=== PATIENT | female | born 1960 | race Caucasian/White ===

== ENCOUNTER 2024-08-06 05:24 | Observation (INO) ==
--- NOTE | 2024-07-06 11:40 | PAT Medication Instructions ---
Medication Instructions Date of Service July 06, 2024 Home Medications Medication Instructions Recorded acetaminophen 500 mg tablet 1,000 mg (2 x 500 mg) PO TID pain 12/12/23 (Tylenol Extra Strength) 30 days #180 tabs oxycodone 5 mg tablet 5 - 10 mg (1 - 2 x 5 mg) PO Q6 PRN 12/12/23 pain #40 tabs Medication List: buspirone 10 mg tablet 10 mg PO TID PRN Anxiety duloxetine 30 mg capsule,delayed release 30 mg PO QAM duloxetine 60 mg capsule,delayed release 60 mg PO QAM hydrochlorothiazide 25 mg tablet 25 mg PO QAM hydrocodone 5 mg-acetaminophen 300 mg tablet 1 tab PO Q6H PRN Pain levothyroxine 137 mcg capsule 137 mcg PO QAM lisinopril 20 mg tablet 20 mg PO QAM omeprazole 40 mg capsule,delayed release 40 mg PO BID ropinirole 1 mg tablet 1 mg PO HS Medical Thc 1 dose PO DAILY PRN pain/anxiety cholecalciferol (vitamin D3) 125 mcg (5,000 unit) tablet (Vitamin D3) 250 mcg PO QAM cyanocobalamin (vitamin B-12) 1,000 mcg/mL injection solution 1,000 mcg IM MONTHLY magnesium oxide 500 mg PO QAM hlflzxriifxp-wyifahaj-bighut tablet (Multivitamin 50 Plus tablet) 1 tab PO QAM acetaminophen 500 mg tablet (Tylenol Extra Strength) 1,000 mg (2 x 500 mg) PO TID pain oxycodone 5 mg tablet 5 - 10 mg (1 - 2 x 5 mg) PO Q6 PRN pain famotidine 10 mg tablet 10 mg PO QAM MEDICATION INSTRUCTIONS: Continue as directed cyanocobalamin (vitamin B-12) 1,000 mcg/mL injection solution 1,000 mcg IM MONTHLY DO NOT take the morning of surgery Medical Thc 1 dose PO DAILY PRN pain/anxiety cholecalciferol (vitamin D3) 125 mcg (5,000 unit) tablet (Vitamin D3) 250 mcg PO QAM magnesium oxide 500 mg PO QAM drqyhtqoyzvs-lcskkykd-kwreuy tablet (Multivitamin 50 Plus tablet) 1 tab PO QAM hydrochlorothiazide 25 mg tablet 25 mg PO QAM lisinopril 20 mg tablet 20 mg PO QAM Take morning of surgery With a small sip of water, OTHERWISE NOTHING TO EAT OR DRINK AFTER MIDNIGHT: acetaminophen 500 mg tablet (Tylenol Extra Strength) 1,000 mg (2 x 500 mg) PO TID pain omeprazole 40 mg capsule,delayed release 40 mg PO BID buspirone 10 mg tablet 10 mg PO TID PRN Anxiety oxycodone 5 mg tablet 5 - 10 mg (1 - 2 x 5 mg) PO Q6 PRN pain hydrocodone 5 mg-acetaminophen 300 mg tablet 1 tab PO Q6H PRN Pain famotidine 10 mg tablet 10 mg PO QAM levothyroxine 137 mcg capsule 137 mcg PO QAM duloxetine 30 mg capsule,delayed release 30 mg PO QAM duloxetine 60 mg capsule,delayed release 60 mg PO QAM Take evening before surgery acetaminophen 500 mg tablet (Tylenol Extra Strength) 1,000 mg (2 x 500 mg) PO TID pain omeprazole 40 mg capsule,delayed release 40 mg PO BID buspirone 10 mg tablet 10 mg PO TID PRN Anxiety oxycodone 5 mg tablet 5 - 10 mg (1 - 2 x 5 mg) PO Q6 PRN pain hydrocodone 5 mg-acetaminophen 300 mg tablet 1 tab PO Q6H PRN Pain Medical Thc 1 dose PO DAILY PRN pain/anxiety (if needed) ropinirole 1 mg tablet 1 mg PO HS Other Notes If you have any questions please call us at [phone] or [phone] or [phone] or [phone]
--- NOTE | 2024-07-13 11:28 | Anesthesiology Consultation ---
Date of Service July 13, 2024 Assessment & Plan (1) Encounter for pre-operative examination: - Outpatient joint assessment: Patient is currently scheduled for inpatient pathway. If re-evaluated and patient/surgeon requests outpatient pathway, patient is acceptable candidate for outpatient joint program from anesthesia standpoint pending surgeon's office assessment of pt motivation/support/completion of same day joint program preop requirements. Chart Review Chart Review: Acceptable Risk for Surgery and Patient seen in Pre Admission Testing Teaching & Discussion Pre-Anesthesia Teaching/Discussion Notes: Instructed NPO after midnight before surgery, except medications with 15 cc of water. Medication instructions provided according to the PAT guidelines. History Surgery Operation Date: 08/06/24 10:40 Proposed Procedures p Right Total Hip Arthroplasty - Jaylen Buitrago MD Height/Weight Height: 5 ft 5 in Weight: 123.9 kg Allergies Allergy/AdvReac Type Severity Reaction Status Date / Time latex Allergy hives and Verified 06/24/24 08:41 blisters Medications Home Medications Medication Instructions Recorded Confirmed Last Taken buspirone 10 mg tablet 10 mg PO TID PRN Anxiety 11/13/23 07/01/24 Unknown duloxetine 30 mg capsule,delayed 30 mg PO QAM 11/13/23 07/01/24 Unknown release duloxetine 60 mg capsule,delayed 60 mg PO QAM 11/13/23 07/01/24 Unknown release hydrochlorothiazide 25 mg tablet 25 mg PO QAM 11/13/23 07/01/24 Unknown hydrocodone 5 mg-acetaminophen 300 1 tab PO Q6H PRN Pain 11/13/23 07/01/24 Unknown mg tablet levothyroxine 137 mcg capsule 137 mcg PO QAM 11/13/23 07/01/24 Unknown lisinopril 20 mg tablet 20 mg PO QAM 11/13/23 07/01/24 Unknown omeprazole 40 mg capsule,delayed 40 mg PO BID 11/13/23 07/01/24 Unknown release ropinirole 1 mg tablet 1 mg PO HS 11/13/23 07/01/24 Unknown Medical Thc 1 dose PO DAILY PRN pain/anxiety 11/18/23 07/01/24 Unknown cholecalciferol (vitamin D3) 125 250 mcg PO QAM 11/18/23 07/01/24 Unknown mcg (5,000 unit) tablet (Vitamin D3) cyanocobalamin (vitamin B-12) 1,000 mcg IM MONTHLY 11/18/23 07/01/24 Unknown 1,000 mcg/mL injection solution magnesium oxide 500 mg PO QAM 11/18/23 07/01/24 Unknown lloicvwliihb-fzgpjjra-azoeif 1 tab PO QAM 11/18/23 07/01/24 Unknown tablet (Multivitamin 50 Plus tablet) acetaminophen 500 mg tablet 1,000 mg (2 x 500 mg) PO TID pain 12/12/23 07/01/24 Unknown (Tylenol Extra Strength) 30 days #180 tabs oxycodone 5 mg tablet 5 - 10 mg (1 - 2 x 5 mg) PO Q6 PRN 12/12/23 07/01/24 Unknown pain #40 tabs famotidine 10 mg tablet 10 mg PO QAM 06/24/24 07/01/24 Unknown Past Medical History Medical History (Updated 07/13/24 @ 11:35 by Zeynep Rajan PA-C) Anxiety Chronic back pain follows with [facility] pain management Degenerative disc disease Depression GERD (gastroesophageal reflux disease) controlled, stable per pt Hiatal hernia History of anesthesia reaction hx of having a nerve block that did not work in the past for wrist surgery History of gastric ulcer 01/2024 (resolved) History of migraine Hx of Clostridium difficile infection (~1989) early s - treated with abx, no problems since. Hypertension controlled, stable per pt Hypothyroidism Lumbar disc herniation Medical cannabis use Morbid obesity Osteoarthritis Postoperative ileus (2015) s/p gastric sleeve procedure and "reattachment of the intestines from the original weightloss surgery at age 15 Pulmonary nodules monitors with chest ct annually (last done at [facility] 02/2023) Restless leg syndrome Patient denies h/o stroke, seizures, heart attack, heart failure, DM, blood clots/DVTs or blood transfusions. Exercise / Class Metabolic Activity III < 4 Walking/Shop/Light housework (ambulates with rolling walker, denies chest discomfort or shortness of breath with usual activities) Past Family History Family History Other No family history of adverse response to anesthesia Past Surgical History Surgical History H/O abdominal surgery at age 15, weightloss surgery (removal of small intestine? maybe Kelly-en-y procedure, pt unsure) H/O right wrist surgery wrist fusion with hardware History of appendectomy with hysterectomy History of bilateral tubal ligation History of cataract surgery bilateral History of cholecystectomy History of colonoscopy History of dilatation and curettage History of esophagogastroduodenoscopy (EGD) last done 03/2024 S/P epidural steroid injection S/P gastric sleeve procedure (2015) [facility] S/P left knee arthroscopy S/P ORIF (open reduction internal fixation) fracture right wrist with hardware S/P pilonidal cyst excision S/P YANIRA-BSO S/P tonsillectomy Past Anesthesia History Other (mother required more medication than usual) History of PONV History of PONV (more than 20 yrs ago) and Hx of Motion Sickness Social History Smoking Status: Former smoker Do You Dip or Chew Tobacco: No Smoking End Date: quit 2014 Hx Alcohol Use: No Hx Substance Use: Yes (medical THC gummies and vape PRN) substance use type: marijuana Substance Use Type Other:: medical THC gummies and vape PRN-advised Last Used Substance Other:: 06/30/24 Review of Systems Patient denies chest pain, shortness of breath, dyspnea on exertion, snoring, witnessed apneas, fever, chills, cough, wheezing, or palpitations. Physical Exam Vital Signs Vitals BP 129/76 P 77 TEMP 98.1 SP02 95% on RA RESP 19 Physical Patient resting comfortably in chair in no acute distress, alert and oriented, responding appropriately throughout visit Full cervical extension range of motion without pain TMD 3.5 finger breadths Mallampati Score 3 Dentition: upper partial; denies chipped or loose teeth, caps/crowns, implants or bridges Lungs: normal respiratory effort. Good air movement, clear throughout to auscultation, no adventitious breath sounds Cardiac: regular rate and rhythm, no murmurs noted Carotid arteries: negative bruit bilat Lab Results Anesthesia Preop Results Results Anesthesia Widget: WBC 5.59 K/ul (4.8-10.8) 07/13/24 Hgb 12.9 g/dl (12.0-16.0) 07/13/24 Hct 39.4 % (37.0-47.0) 07/13/24 Plt 274 K/uL (130-400) 07/13/24 Na 141 mmol/L (136-145) 07/13/24 K 4.6 mmol/L (3.5-5.1) 07/13/24 Cl 105 mmol/L (98-107) 07/13/24 CO2 30 mmol/L (21-32) 07/13/24 BUN 29 mg/dl (6-23) H 07/13/24 Creat 0.80 mg/dl (0.6-1.2) 07/13/24 Glucose Level 100 mg/dl (70-99(Fasting)) H 07/13/24 PT 9.9 Seconds (9.0-12.0) 07/13/24 PTT 27 Seconds (21-31) 07/13/24 INR 0.9 (0.9-1.1) 07/13/24 Blood Type O Positive 07/13/24 Antibody Screen NEGATIVE 07/13/24 Testing Electrocardiogram Date: 12/02/23 NSR, rate 82 bpm Chest X-Ray Date: 12/02/23 No acute process.
--- NOTE | 2024-07-31 11:26 | History & Physical Report ---
Date of Service July 31, 2024 Assessment & Plan (1) Degenerative joint disease of right hip: 63-year-old female with history of gastric bypass surgery x 2 with advanced right hip arthritis. She has failed conservative measures. She was actually scheduled for surgery in the past but had to cancel due to some GI issues which have now been cleared out. She denied to proceed with right hip replacement. Plan: Amritaran to take her to the operating room and do a right total hip placement of the right cementless procedure explained. Informed consent was obtained. Will have a cemented stem available in case of bone density does not support an uncemented stem. She will likely need a Prevena VAC dressing po stoperatively. Will do well over weekend without any GI issues with her famotidine and omeprazole. Will hold any unnecessary NSAIDs. She is planned to be discharged to home using [facility] health program. (2) Obesity: (3) Hypertension: (4) Thyroid disease: History of Present Illness Chief Complaint: . Persistent and progressive right hip pain and discomfort. Primary Care Provider: Wendy Eduardo PA-C . The patient is a 63-year-old female from [facility] who presents for treatment of her hip. I had seen her back in November and scheduled for total hip replacement. She developed significant GI problems had an ulcer and has surgery was canceled. She has had an extensive workup and treatment and this is now under control. As she has now been cleared to proceed with her surgery. She does have history of gastric bypass surgery x 2. She has had to resort to using a cane to get around to the pain. She gotten worse over the past year in particular over the past 6 months. She has attempted weight loss with some success but feels she is limited due to her limited mobility. Allergies Allergy/AdvReac Type Severity Reaction Status Date / Time latex Allergy hives and Verified 06/24/24 08:41 blisters Home Medications Medication Instructions Recorded Confirmed Type buspirone 10 mg tablet 10 mg PO TID PRN Anxiety 11/13/23 07/01/24 History duloxetine 30 mg capsule,delayed 30 mg PO QAM 11/13/23 07/01/24 History release duloxetine 60 mg capsule,delayed 60 mg PO QAM 11/13/23 07/01/24 History release hydrochlorothiazide 25 mg tablet 25 mg PO QAM 11/13/23 07/01/24 History hydrocodone 5 mg-acetaminophen 300 1 tab PO Q6H PRN Pain 11/13/23 07/01/24 History mg tablet levothyroxine 137 mcg capsule 137 mcg PO QAM 11/13/23 07/01/24 History lisinopril 20 mg tablet 20 mg PO QAM 11/13/23 07/01/24 History omeprazole 40 mg capsule,delayed 40 mg PO BID 11/13/23 07/01/24 History release ropinirole 1 mg tablet 1 mg PO HS 11/13/23 07/01/24 History Medical Thc 1 dose PO DAILY PRN pain/anxiety 11/18/23 07/01/24 History cholecalciferol (vitamin D3) 125 250 mcg PO QAM 11/18/23 07/01/24 History mcg (5,000 unit) tablet (Vitamin D3) cyanocobalamin (vitamin B-12) 1,000 mcg IM MONTHLY 11/18/23 07/01/24 History 1,000 mcg/mL injection solution magnesium oxide 500 mg PO QAM 11/18/23 07/01/24 History yvpqicuzvczi-onbjitcc-gkotvk 1 tab PO QAM 11/18/23 07/01/24 History tablet (Multivitamin 50 Plus tablet) acetaminophen 500 mg tablet 1,000 mg (2 x 500 mg) PO TID pain 12/12/23 07/01/24 Rx (Tylenol Extra Strength) 30 days #180 tabs oxycodone 5 mg tablet 5 - 10 mg (1 - 2 x 5 mg) PO Q6 PRN 12/12/23 07/01/24 Rx pain #40 tabs famotidine 10 mg tablet 10 mg PO QAM 06/24/24 07/01/24 History Past Med/Surg History Problem List (Updated 07/31/24 @ 11:25 by Jaylen Buitrago MD) Degenerative joint disease of right hip Obesity Hypertension Thyroid disease Medical History History of gastric ulcer 01/2024 (resolved) Pulmonary nodules monitors with chest ct annually (last done at [facility] 02/2023) Medical cannabis use Hx of Clostridium difficile infection (~1989) early s - treated with abx, no problems since. Morbid obesity History of anesthesia reaction hx of having a nerve block that did not work in the past for wrist surgery Postoperative ileus (2016) s/p gastric sleeve procedure and "reattachment of the intestines from the original weightloss surgery at age 15 Restless leg syndrome Lumbar disc herniation Degenerative disc disease Chronic back pain follows with [facility] Osteoarthritis Hiatal hernia GERD (gastroesophageal reflux disease) controlled, stable per pt Hypothyroidism Depression Anxiety History of migraine Hypertension controlled, stable per pt Surgical History History of dilatation and curettage History of bilateral tubal ligation S/P gastric sleeve procedure (2016) [facility] [place] S/P epidural steroid injection History of cataract surgery bilateral History of appendectomy with hysterectomy History of esophagogastroduodenoscopy (EGD) last done 03/2024 History of colonoscopy S/P left knee arthroscopy S/P pilonidal cyst excision H/O right wrist surgery wrist fusion with hardware S/P ORIF (open reduction internal fixation) fracture right wrist with hardware S/P YANIRA-BSO History of cholecystectomy H/O abdominal surgery at age 15, weightloss surgery (removal of small intestine? maybe Kelly-en-y procedure, pt unsure) S/P tonsillectomy Family History Other No family history of adverse response to anesthesia Social History Smoking Status: Former smoker Tobacco Type: Cigarettes Second Hand Exposure: No; Do You Dip or Chew Tobacco: No; Hx Alcohol Use: No Hx Substance Use: Yes (medical THC gummies and vape PRN) Last Used Substance Other:: 06/30/24 Substance Use Type Other:: medical THC gummies and vape PRN- advised Preferred Language: Khmer Communication Ability: Effective Crusher Foreman Required: No Beliefs That Will Affect Care: None Current Living Situation: Spouse Feels Safe at Home: Yes Assistive Devices: Denture - Upper and Walker Review of Systems All systems reviewed & are unremarkable except as noted in HPI & below. Physical Exam . Physical examination reveals a pleasant middle-age female boot. Looks to be in reasonably decent health. Examination of right hip and leg reveal patient walks with antalgic gait. She comes in using a cane. Very stiff hip with very limited motion. Negative straight leg raise. She is slightly short on the side compared the OpSite about half a centimeter. Negative straight leg raise. Constitutional WD/WN, vitals as above Respiratory normal respiratory effort, lungs clear to auscultation Cardiovascular RRR, no murmur, no edema Gastrointestinal (Abdomen) normal bowel sounds, soft, nontender, no hepatosplenomegaly Results & Data Results & Data Laboratory Results . Diagnostic Findings . X-rays of the right hip were reviewed. Shows advanced right hip DJD. She got complete loss of superior joint space. As she is got some degree of subluxation of the femoral head at the acetabulum. This has progressed over the past 6 months. PG Care Time/CCT Total # of Minutes Spent Total Time Spent with Patient: Total time spent is greater than 50% in coordination of care (as documented) at patient's floor/unit and/or counseling patient: Coding Level of Care Code None Diagnoses Degenerative joint disease of right hip M16.11 Obesity E66.9 Hypertension I10 Thyroid disease E07.9
[2024-08-06] MEDS: LR 500ML BOLUS, THEN 15ML/HR IV SCH (05:52)
[2024-08-06] MEDS: LR 60ML/HR IV SCH (05:53)
[2024-08-06] MEDS: METOCLOPRAMIDE HCL 10 MG TABLET PO SCH (06:14)
[2024-08-06] MEDS: FAMOTIDINE 20 MG TAB PO SCH (06:14)
[2024-08-06] MEDS: ACETAMINOPHEN 500 MG TAB PO SCH ×2 (06:14→14:02)
[2024-08-06] MEDS: CeleBREX 200 MG CAP PO SCH (06:14)
[2024-08-06] MEDS ORDERED: LIDOCAINE 2% 2 ML VIAL/AMP(20MG/ML) INFIL ONE (06:26)
[2024-08-06] MEDS ORDERED: PROPOFOL IV EMULSION 10 MG/ML 20 ML VIAL IV ONE (06:26)
[2024-08-06] MEDS ORDERED: fentaNYL citrate PF 100 MCG/2 ML VIAL ONE (06:28)
[2024-08-06] MEDS ORDERED: MIDAZOLAM HCL 1 MG/ML 2ML VIAL ONE (06:28)
[2024-08-06] MEDS ORDERED: BUPIVACAINE 0.5 % 5 MG/1 ML PF 10ML VIAL ONE (06:32)
[2024-08-06] MEDS: dexAMETHasone**PF** 10 MG/ML VIAL ONE (06:47)
--- NOTE | 2024-08-06 06:48 | History & Physical Bridge Note ---
Date of Service August 06, 2024 History & Physical Bridge Note I have examined the patient, reviewed the History & Physical and in the interval since the performance of the History & Physical I have noted the following changes of clinical significance: no changes noted
[2024-08-06] MEDS: TRANEXAMIC ACID 1,000 MG **IV Pre-op IV SCH (06:54)
[2024-08-06] MEDS: ceFAZolin 3000MG 3,000 MG/72.5 ML BAG IV SCH (07:04)
[2024-08-06] MEDS ORDERED: PHENYLEPHRINE HCL 10 MG/ML VIAL ONE (07:13)
[2024-08-06] MEDS ORDERED: PHENYLEPHRINE 100MCG/ML 5ML SYR ONE (07:13)
[2024-08-06] MEDS ORDERED: ePHEDrine sulfate 50 MG/5 ML SYR ONE (07:18)
[2024-08-06] MEDS ORDERED: ePHEDrine sulfate 50 MG/ML AMP IV PRN (07:49)
[2024-08-06] MEDS ORDERED: PROMETHAZINE HCL 6.25 MG in SODIUM CHLORIDE 0.9% 50 ML IV PRN (07:49)
[2024-08-06] MEDS ORDERED: HYDROmorphone INJ 2 MG/ML SYR/VIAL IV PRN (07:49)
[2024-08-06] MEDS ORDERED: ATROPINE SULFATE 0.1 MG/ML 10ML SYR IV PRN (07:49)
[2024-08-06] MEDS: BUPIVACAINE/EPINEPHRINE 0.5% MPF 1:200,000 30 ML VIAL ONE (07:53)
--- NOTE | 2024-08-06 09:19 | Operative Report ---
PG Post Operative Report Pre & Post Diagnosis Operation Date: 08/06/24 07:00 Pre-Op Diagnosis: Right Hip Degenerative Joint Disease Post-Op Diagnosis: Right Hip Degenerative Joint Disease I identified the patient and participated in the time-out.: Yes Procedure Operation Date: 08/06/24 07:00 Actual Procedures p Right Total Hip Arthroplasty, Uncemented(Right) - Jaylen Buitrago MD Surgeon Jaylen Buitrago MD Marketing Operations Associate None Estimated Blood Loss 200 Findings Consistent with Post-Op Diagnosis Specimens Right femoral head sent for pathology. Anesthesia Type Spinal MAC Complications none Disposition Accompanied Patient To Recovery: No Indications The patient is a 63-year-old female whose had a several year history of increasing right hip pain discomfort has become more debilitating over time. X- rays show progressive hip arthritis. She failed conservative measures. She elected proceed with total hip arthroplasty. She had been previously scheduled but had to be canceled to home medical reasons. She has been medically optimi zed now indicated and elects to proceed with total hip arthroplasty. Description of Procedure Operative implants consist of: 1 Biomet G7 size 54 mm acetabular shell. 2. [place] hole retanner. 3. 6.5 mm cancellous acetabular screws 1 of 35 mm length and 1 of 25 mm length. 4. Highly cross-linked polyethylene liner with a 54 mm outer diameter and 36 mm inner diameter. 5. DePuy Karaya size 13 KLA femoral stem. 6. +5/36 mm ceramic articular ball. The patient was taken to the op room, identified, placed on the operating table in the supine position. All conductors were appropriately padded. IV antibiotics fibra anesthesia team. A spinal anesthetic had been implemented holding area. A Strickland catheter was placed in sterile fashion. The patient was then placed in the left lateral cubitus position. An axillary roll was placed. Distal Birkett position was used for positioning. The right hip and leg were then prepped and draped in usual sterile fashion. A posterolateral approach to the right hip was then performed to a curvilinear incision centered over the greater trochanter. Sharp dissection Through subcutaneous tissue dental of the IT band gluteal fascia. The IT band gluteal fascia incised longitudinally in line with skin incision. The greater bursa was excised. The piriformis and external rotators along with the posterior hip joint capsule were then released in the posterior aspect the hip as a single layer. The hip was internally rotated and dislocated. A femoral neck osteotomy cut was made with a Final Cut about 10 mm above the lesser trochanter. The femoral head was removed and sent for pathology. The femur was retracted anteriorly. Attention then drawn the acetabulum. The acetabulum labrum was excised. The pulmonary fat was excised. Sequential reaming the acetabular was then performed again with a size 45 and progressing up to 53. I reamed a little bit with a 54 reamer and then placed a 54 mm Biomet cup in about 40 degrees lateral opening and 20 degrees of anteversion. It was fixed with two 6.5 screws. A trial liner was placed. Attention drawn the femur. The proximal femur was entered with a cookie cutter followed by careful finder. I then broached beginning with a size 8 and progressing up to a 13. Get excellent fitted to 13. I tried the hip and the hip was fully stable with a +5 articular ball. Leg lengths seemed equal. Soft tension seemed appropriate. We elect to place these implants. All trial implants were removed. An apex hole retanner was placed. Highly cross-linked polyethylene liner was placed. A size 13 KLA femoral stem was impacted in position. A +5/36 mm ceramic articular ball was placed. Hip was located and once again found to be stable. Attention was then drawn toward closing. The wounds irrigated pulsatile lavage solution. I did inject locally with 60 cc of half percent Marcaine with epinephrine. The posterior capsule and external rotators were then repaired through drill holes with #2 Tycron suture. The IT band gluteal fascia was then closed with #1 PDS suture in a running fashion through the subcutaneous tissue then closed with 3 layers with the deep layer #2 Vicryl suture the mid level layer was 0 Vicryl suture in the subcutaneous tissues with 2-0 Dexon suture in buried interrupted fashion. Skin was then closed with skin farzana. A Prevena VAC dressing was applied to the very thick soft tissue envelope. The patient was then transferred to the recovery room in stable condition. Patient tolerated procedure well and there are no complications. I attest to the content of the Intraoperative Record and any orders documented therein. Any exceptions are noted below.
--- NOTE | 2024-08-06 09:55 | XRay Report ---
XR hip 1V RT w pelvis CLINICAL HISTORY: Postoperative evaluation. COMPARISON: Right hip radiographs June 24, 2024. FINDINGS: Alignment of the total right hip arthroplasty is in anatomic. There is no periprosthetic f racture or unexpected radiopaque foreign body. There are acetabular screws and skin farzana. IMPRESSION: Expected findings following total right hip arthroplasty. ACT 112: Negative or not required by law. Electronically signed by: Chidi Page M.D. 08/06/2024 9:53 AM
[2024-08-06] MEDS ORDERED: MAGNESIUM HYDROXIDE SUSP 30 ML UDC PO PRN (10:17)
[2024-08-06] MEDS ORDERED: METOCLOPRAMIDE HCL INJ 5 MG/ML 2 ML VIAL IV PRN (10:17)
[2024-08-06] MEDS ORDERED: NALOXONE HCL 0.4 MG/1 ML VIAL/CARP IV PRN (10:17)
[2024-08-06] MEDS ORDERED: oxyCODONE HCL IR 5 MG TAB (IMMEDIATE RELEASE) PO PRN ×2 (10:17)
[2024-08-06] MEDS ORDERED: HYDROmorphone INJ 0.5 MG/0.5 ML SYR IV PRN (10:17)
[2024-08-06] MEDS ORDERED: ALUMINUM/MAGNESIUM SUSP 30 ML UDC PO PRN (10:17)
[2024-08-06] MEDS ORDERED: ONDANSETRON INJ 2 MG/ML 2 ML VIAL IV PRN (10:17)
[2024-08-06] MEDS ORDERED: busPIRone 5 MG TAB PO PRN (10:17)
[2024-08-06] MEDS ORDERED: bisacodyL 10 MG SUPP PR PRN (10:17)
[2024-08-06] MEDS ORDERED: MEDICAL MARIJUANA PO PRN (10:40)
[2024-08-06] MEDS: KETOROLAC 30 MG/ML VIAL IV SCH (11:51)
[2024-08-06] MEDS ORDERED: ACETAMINOPHEN 500 MG TAB PO SCH ×2 (14:00)
--- NOTE | 2024-08-06 14:25 | Anesthesiology Progress Note ---
Date of Service August 06, 2024 Anesthesia Post Procedure Vital Signs Vital Signs: Temp Pulse Pulse Resp BP Pulse Ox O2 Del Method 08/06/24 10:16 36.4 C L 86 16 130/80 98 Room Air 08/06/24 09:45 85 12 121/78 96 Room Air 08/06/24 09:35 36.4 C L 86 14 108/80 96 Room Air 08/06/24 09:25 82 16 134/76 98 Room Air 08/06/24 09:15 83 14 130/73 99 Oxymask 08/06/24 09:09 36.3 C L 84 16 124/81 97 Oxymask 08/06/24 05:58 36.5 C 71 20 137/80 95 Room Air O2 Flow Rate 08/06/24 10:16 08/06/24 09:45 08/06/24 09:35 08/06/24 09:25 08/06/24 09:15 3 08/06/24 09:09 6 08/06/24 05:58 Pain Intensity Right Hip: Pain Intensity: 4 Transfer of Care Handoff Completed per policy Notes Mental Status: alert / awake / arousable and participated in evaluation Nausea / Vomiting: adequately controlled Pain: adequately controlled Airway Patency, RR, SpO2: stable & adequate BP & HR: stable & adequate Hydration State: stable & adequate Anesthetic Complications: no major complications apparent and Pt Satisfied with anesthetic care
[2024-08-06] MEDS: ceFAZolin 2000MG 2,000 MG/15 ML SYR IV SCH (14:52)
[2024-08-06] MEDS: TRANEXAMIC ACID / 0.7% NACL 1,000 MG/100 ML BAG IV SCH (14:52)
[2024-08-06] MEDS: ASCORBIC ACID 500 MG TAB PO SCH (17:12)
[2024-08-06] MEDS: SENNA 8.6 MG TAB PO SCH (20:11)
[2024-08-06] MEDS: DOCUSATE SODIUM 100 MG CAP PO SCH (20:12)
[2024-08-06] MEDS: rOPINIRole HCL 1 MG TABLET PO SCH (20:13)
[2024-08-06] MEDS: ASPIRIN 81 MG ECTAB PO SCH (20:13)
[2024-08-06] MEDS: PANTOprazole 40 MG TAB PO SCH (20:13)
[2024-08-06] MEDS ORDERED: SENNA 8.6 MG TAB PO SCH (21:00)
[2024-08-07] MEDS: LEVOTHYROXINE SODIUM 137 MCG TABLET PO SCH (05:49)
[2024-08-07 06:18] LABS: Basophils # (auto) 0.02 K/uL (0.00-0.20); Basophils % (auto) 0.2 %; Eosinophils # (auto) 0.01 K/uL (0.00-0.50); Eosinophils % (auto) 0.1 %; Hematocrit (blood only) 36.9 % (37.0-47.0); Hemoglobin 12.1 g/dl (12.0-16.0); Immature Granulocytes # (auto) 0.04 K/uL (0.01-0.20); Immature Granulocytes % (auto) 0.4 %; Lymphocytes % (auto) 12.6 %; Mean Corpuscular Hemoglobin 32.4 pg (25.0-34.0); Mean Corpuscular Hgb Conc 32.8 g/dL (32.0-36.0); Mean Corpuscular Volume 98.9 fL (80.0-100.0); Mean Platelet Volume 10.5 fL (9.4-12.4); Monocytes # (auto) 0.86 K/uL (0.11-0.59); Monocytes % (auto) 8.3 %; Neutrophils # (auto) 8.07 K/uL (1.40-6.50); Neutrophils % (auto) 78.4 %; Platelet Count 237 K/uL (130-400); RDW Coefficient of Variation 13.2 % (11.5-14.5); RDW Standard Deviation 47.4 fL (36.4-46.3); Red Blood Count 3.73 M/uL (4.20-5.40)
[2024-08-07 06:33] LABS: BUN Creatinine Ratio 34.8 (10-20); Calcium 8.9 mg/dl (8.6-10.3); Creatinine Clr Calc Pharmacy 81.3 ml/min; Potassium 4.1 mmol/L (3.5-5.1)
--- NOTE | 2024-08-07 08:16 | Orthopedic Progress Note ---
Date of Service August 07, 2024 Assessment & Plan (1) Status post right hip replacement: Plan: 63-year-old female postop day 1 from right hip replacement doing pretty well. Pain is controlled. Hip is located. She is neurologically intact. Plan: 1. DVT prophylaxis including thigh-high teds, SCDs, and a baby aspirin twice a day for 6 weeks. 2. PT/OT. Weight-bear as tolerated. Right total hip protocol. 3. Pain control. Doing okay with current pain regimen. 4. Disposition. She is planned to be discharged home with some home health. She got a Prevena VAC dressing in place. That will be removed in 7 days. (2) Obesity: (3) Hypertension: (4) Thyroid disease: Admission and Anticipated Discharge Date Admission Date: August 06, 2024 Subjective 63-year-old female postop day 1 from right hip replacement. She is doing pretty well. Pain has been controlled. Had a reasonable night. No chest pain or shortness of breath. Not feeling dizzy or lightheaded. Physical Exam Physical Exam: Physical steven is a pleasant middle-age female. She sat in her bedside chair this morning looks pretty comfortable. Examination of the right hip and leg reveals the Prevena VAC dressing in place. Thigh is soft and supple. Leg lengths are equal. She can dorsiflex and plantarflex her foot appropriately. Respiratory: normal respiratory effort, lungs clear to auscultation Cardiovascular: RRR, no murmur, no edema Gastrointestinal (Abdomen): normal bowel sounds, soft, nontender, no hepatosplenomegaly Results & Data Vital Signs (Past 12 Hours) Vital Signs Temp Pulse Resp BP Pulse Ox O2 Del Method 08/07/24 06:00 36.5 C 76 16 149/80 H 97 Room Air 08/07/24 01:00 36.4 C L 76 18 134/82 96 Room Air 08/06/24 21:00 36.7 C 104 H 18 130/73 94 Room Air Laboratory Results Hemoglobin is 12.1. Hematocrit 36.9. Electrolytes are stable.
[2024-08-07] MEDS ORDERED: MULTIVITAMIN TAB PO SCH (09:00)
[2024-08-07] MEDS: CHOLECALCIFEROL 125 MCG (5,000 UNITS) TAB PO SCH (09:54)
[2024-08-07] MEDS: MAGNESIUM OXIDE 400 MG TAB PO SCH (09:55)
[2024-08-07] MEDS: hydroCHLOROthiazide 25 MG TAB PO SCH (09:55)
[2024-08-07] MEDS: FAMOTIDINE 10 MG TABLET PO SCH (09:55)
[2024-08-07] MEDS: CEROVITE ADV FORMULA TAB PO SCH (09:55)
[2024-08-07] MEDS: lisinopril 20 MG TAB PO SCH (09:55)
[2024-08-07] MEDS: DULoxetine HCL 30 MG CAP PO SCH (09:55)
[2024-08-07] MEDS: DULoxetine HCL 60 MG CAP PO SCH (09:55)
[2024-08-07] MEDS: CYANOCOBALAMIN 1000 MCG/ML VIAL IM SCH (10:00)
[2024-08-07] MEDS: dexAMETHasone 10 MG in SYRINGE 0 ML IV SCH (10:00)
--- NOTE | 2024-08-10 15:40 | Discharge Summary ---
Date of Service August 10, 2024 Admission HPI (Per Admitting) . The patient is a 63-year-old female from [facility] who presents for treatment of her hip. I had seen her back in November and scheduled for total hip replacement. She developed significant GI problems had an ulcer and has surgery was canceled. She has had an extensive workup and treatment and this is now under control. As she has now been cleared to proceed with her surgery. She does have history of gastric bypass surgery x 2. She has had to resort to using a cane to get around to the pain. She gotten worse over the past year in particular over the past 6 months. She has attempted weight loss with some success but feels she is limited due to her limited mobility. Admission Exam (Per Admitting) . Physical examination reveals a pleasant middle-age female boot. Looks to be in reasonably decent health. Examination of right hip and leg reveal patient walks with antalgic gait. She comes in using a cane. Very stiff hip with very limited motion. Negative straight leg raise. She is slightly short on the side compared the OpSite about half a centimeter. Negative straight leg raise. Principal Diagnosis Same as "Discharge Diagnosis" noted below under Discharge Instructions. Discharge Data Procedures Performed Operation Date: 08/06/24 07:00 Actual Procedures p Right Total Hip Arthroplasty, Uncemented(Right) - Jaylen Buitrago MD Hospital Course (1) Status post right hip replacement: This is a 63 year old patient admitted on 08/06/24 and underwent total hip arthroplasty. She tolerated the procedure well and there were no complications. Transferred to the PACU post op and later to the orthopedic floor for further care. She was given ancef for antibiotic prophylaxis. She was also given CLOTILDE stockings, SCDs, and aspirin for DVT prophylaxis. Hemoglobin, hematocrit, and vital signs were monitored during her hospital stay and remained stable. Did not require any blood transfusions. There were no complications during her hospital stay. By post op day #1 the patient was tolerating a regular diet, pain was reasonably controlled with oral pain medicine, and she was participating in physical therapy. On post op day #1 the patient was discharged home and set up with home health care. She was given printed discharge instructions including prescriptions for extra strength tylenol, aspirin, cefadroxil, ketorolac, zofran, senokot, and oxycodone. Continue physical therapy, weight bearing as tolerated. Continue CLOTILDE stockings. Follow up approximately 2 weeks post op or sooner if there are problems or concerns. PG Care Time/CCT Total # of Minutes Spent Total Time Spent with Patient: Total time spent is greater than 50% in coordination of care (as documented) at patient's floor/unit and/or counseling patient: Discharge Plan Discharge Items Patient Disposition: Home - Home Health Services Reason For Visit: Hip Osteoarthritis Discharge Diagnosis: Right Hip Replacement Activity: Per Instructions section Activity Comment: Folow/Obey hip precautions at all times. Weightbearing: Full weightbearing Weightbearing Comment: Weightbear as tolerated obeying hip precautions at all times. Non-emergency contact: Surgeon Call non-emergency contact if: you have any medication questions Follow-up/Referrals: Wendy Eduardo PA-C [Primary Care Provider] - Diet: Regular Addtl Attending Provider Instructions: ACTIVITY RECOMMENDATIONS: Diet: * You may resume previous diet. Physical Therapy: * Aggressive physical therapy is not usually needed. You will learn to take care of yourself safely and walk. * Follow the "Hip Precautions Instructions." * In some cases, the school social worker at the hospital will arrange to have a therapist come to your house for the first couple of weeks to help you learn these sk ills. * You need to practice on your own or with the help of a family member as needed. * When you learn these skills, most of the therapy can be done on your own. Home Exercise: * You were shown a series of exercises in the hospital. Do these exercises three to four times each day including the exercises you were shown in physical therapy. Walking: * Get up and walk several times each day. For the first four weeks, try not to stand or walk for more than one hour at a time. If you do stand or walk for more than one hour, you will not hurt anything, but your leg will likely swell. * As you feel comfortable, you may change from the walker or crutches to a cane and then to independent walking. MEDICATIONS: New Medicine: * You will likely be taking one or more of these medicines: 1. Oxycodone - Take, as directed, when you need it, every six hours to control your pain. 2. Aspirin - Thins your blood to lessen the chance of forming a blood clot. * The most common side effects of pain medicine and iron are nausea and constipation. If nausea or constipation is too much of a problem or if you have any questions about your new medicines or doses, call [facility] at . We will try to help you manage these issues. "VERY IMPORTANT TO READ AND REVIEW" Pain: * The immediate post-operative period after hip replacement surgery is often quite painful. * You are given a prescription for pain medicine. You should take it, as directed, when you need it, especially before physical therapy and before going to bed. Pain that interferes with sleep is very common and can last several months. * You will likely need pain medicine for the first two to four weeks. It will not stop all of the pain. The pain will lessen and as you feel better, you may change to milder pain medicine such as Tylenol. * The most common side effects of pain medicine are nausea and constipation, so don't take more than you need. SPECIAL CARE INSTRUCTIONS: TEDs/Elastic Stockings: * The white elastic stockings help limit swelling and prevent blood clots from forming in your legs. The more you wear them, the more they work. * Wear them for six weeks. Incision Site Care: * Remove dressing postoperative day 7. Keep direct shower pressure off the incision site. * After showering, cover farzana with dry gauze and change daily or more frequently if the dressing is getting saturated with drainage. * May completely stop using bandage if wound is dry and no drainage * Farzana are removed between 2 and 3 weeks post-op. If your follow-up appointment is made before 2 weeks, please have your appointment re- scheduled. It is too early to remove the farzana. Prevention of Infection: * Take antibiotics one hour before any dental cleaning, dental work, urological procedure, gastrointestinal procedure or any invasive surgery in order to prevent your new joint from getting infected. * You may get the antibiotics from the doctor performing the procedure or you may call our office at before and we will call in a prescription to the pharmacy of your choice. Things to Watch For: * Drainage from the incision site that occurs more than one week after your surgery. * Severely increased leg pain or swelling. * Increased redness at the incision site. * Fever above 102 degrees Fahrenheit. * Unusual chest pain or shortness of breath. * Unusual pain or burning with urination. Call [facility] at with any of the above problems or if you have any questions about your medicines or recovery. FOLLOW UP VISIT: Make an appointment to see your doctor for approximately two weeks after surgery for a progress check and staple removal by calling the office at . Pending Studies at Discharge: No Stand-Alone Forms: My [facility], Smoking Cessation Medications and DC Order Prescriptions: Continued oxycodone 5 mg tablet 5 - 10 mg PO Q6 PRN (Reason: pain) Qty: 40 0RF Rx Instructions: Take as needed for pain acetaminophen [Tylenol Extra Strength] 500 mg tablet 1,000 mg PO TID 30 Days Qty: 180 0RF Rx Instructions: Take 3 times per day to lessen pain. oxycodone 5 mg tablet 5 - 10 mg PO Q6 PRN (Reason: pain) Qty: 40 0RF Rx Instructions: Take as needed for pain ondansetron 4 mg tablet,disintegrating 4 mg PO Q8 PRN (Reason: nausea) Qty: 20 1RF Rx Instructions: Take as needed for nausea sennosides [Senokot] 8.6 mg tablet 8.6 mg PO BID 14 Days Qty: 28 0RF Rx Instructions: Take two times a day to prevent/treat constipation acetaminophen [Tylenol Extra Strength] 500 mg tablet 1,000 mg PO TID 30 Days Qty: 180 0RF Rx Instructions: Take 3 times per day to lessen pain. aspirin [Melony Low Dose Aspirin] 81 mg tablet,delayed release (DR/EC) 81 mg PO BID 45 Days Qty: 90 0RF Rx Instructions: Take to prevent blood clots. cefadroxil 500 mg capsule 500 mg PO BID 7 Days Qty: 14 0RF Rx Instructions: Take 1 cap twice a day to prevent infection hydrochlorothiazide 25 mg tablet 25 mg PO QAM lisinopril 20 mg tablet 20 mg PO QAM ropinirole 1 mg tablet 1 mg PO HS duloxetine 60 mg capsule,delayed release(DR/EC) 60 mg PO QAM Rx Instructions: takes with 30mg for a total dose of 90mg qam duloxetine 30 mg capsule,delayed release(DR/EC) 30 mg PO QAM levothyroxine 137 mcg capsule 137 mcg PO QAM omeprazole 40 mg capsule,delayed release(DR/EC) 40 mg PO BID buspirone 10 mg tablet 10 mg PO TID PRN (Reason: Anxiety) famotidine 10 mg tablet 10 mg PO QAM cyanocobalamin (vitamin B-12) 1,000 mcg/mL Solution 1,000 mcg IM MONTHLY magnesium oxide 500 mg magnesium Tablet 500 mg PO QAM Multivitamin 50 Plus Tablet 1 tab PO QAM cholecalciferol (vitamin D3) [Vitamin D3] 125 mcg (5,000 unit) Tablet 250 mcg PO QAM Medical Thc 1 dose PO DAILY PRN (Reason: pain/anxiety) Discontinued hydrocodone-acetaminophen 5-300 mg tablet 1 tab PO Q6H PRN (Reason: Pain) Admission Data Admit Date/Time: 08/06/24 09:13 Attending Provider: Jaylen Buitrago Admit Provider: Jaylen Buitrago Primary Care Provider: Wendy Eduardo Other Providers: [facility],Home Health Other Interventions: Discharge Summary Assessment (RN) Last Done: 08/07/24 11:31
== END 2024-08-07 12:47 | disposition home health service (06) ==
LOC: ASU 05:24 → 3E 05:24